=== PATIENT | male | born 1995 | race African-American/Black ===

== ENCOUNTER 2017-07-20 22:11 | Emergency (ER) | payer SELFPAY ==
[2017-07-20] MEDS ORDERED: IBUPROFEN 800 MG TABLET PO ONE (23:13)
--- NOTE | 2017-07-20 23:16 | ER Document Report ---
HPI - HPI Pain Level: 3 Context: Patient is a 22-year-old male presents emergency room with a chief complaint of shortness of breath and chest pain since Wednesday. Patient states that he noticed it worse with deep breaths but denies any wheezing, cough. Denies any sinus congestion, runny nose, fevers, chills, dyspnea. Patient denies any recent travel, hormone use, recent surgeries, extremity swelling denies any previous history of blood clots.Admits childhood history of asthma states he has not ever had to take Breathing treatments as an adult - CONSTITUTIONAL Constitutional: DENIES: Fever, Chills - EENT EENT: DENIES: Sore Throat, Ear Pain, Eye problems - NEURO Neurology: DENIES: Headache, Weakness, Vision blurred, Dizzinesss / Vertigo - CARDIOVASCULAR Cardiovascular: REPORTS: Chest pain - RESPIRATORY Respiratory: REPORTS: Coughing. DENIES: Trouble Breathing - GASTROINTESTINAL Gastrointestinal: DENIES: Abdominal Pain, Black / Bloody Stools - URINARY Urinary: DENIES: Dysuria, Urgency, Frequency - MUSCULOSKELETAL Musculoskeletal: DENIES: Extremity pain Past Medical History - Social History Smoking Status: Unknown if Ever Smoked Family History: Reviewed & Not Pertinent Patient has suicidal ideation: No Patient has homicidal ideation: No Renal/ Medical History: Denies: Hx Peritoneal Dialysis Vertical Provider Document - CONSTITUTIONAL Agree With Documented VS: Yes Notes: PHYSICAL EXAM GENERAL: Alert, interacts well. HEAD: Normocephalic, atraumatic. EYES: Pupils equal, round, and reactive to light. Extraocular movements intact. ENT: Oral mucosa moist, tongue midline. NECK: Full range of motion. Supple. Trachea midline. LUNGS: Clear to auscultation bilaterally, no wheezes, rales, or rhonchi. No respiratory distress. HEART: Regular rate and rhythm. No murmurs, gallops, or rubs. ABDOMEN: Soft, nondistended, nontender. No guarding, rebound, or rigidity.. Bowel sounds present in all 4 quadrants. EXTREMITIES: Moves all 4 extremities spontaneously. No edema, radial and dorsalis pedis pulses 2/4 bilaterally. No cyanosis. NEUROLOGICAL: Alert and oriented x4. Normal speech. PSYCH: Normal affect, normal mood. SKIN: Warm, dry, normal turgor. No rashes or lesions noted. - INFECTION CONTROL TRAVEL OUTSIDE OF THE [place] IN LAST 30 DAYS: No Course - Re-evaluation Re-evalutation: 07/21/17 00:29 Patient is a 22-year-old male with significant symptom improvement after Motrin. Patient is very well in appearance, vitals within normal limits. Low clinical suspicion for ACS given clinical history, exam, EKG without ST elevations or depressions, and negative initial troponin. HEART score less than or equal to 3. PE also seems unlikely given clinical history, absence of tachycardia or dyspnea. Well's score of 0. CXR without evidence of pneumothorax or pneumonia. No widened mediastinum. Aortic dissection also seems unlikely given history, symmetric pulses, CXR, and vitals. At this time will discharge with return precautions and follow-up recommendations. Verbal discharge instructions given a the bedside and opportunity for questions given. Medication warnings reviewed. Patient is in agreement with this plan and has verbalized understanding of return precautions and the need for primary care follow-up in the next 24-72 hours. - Laboratory Result Diagrams: 07/20/17 23:45 07/20/17 23:45 - Diagnostic Test Radiology reviewed: Image reviewed, Reports reviewed - EKG Interpretation by Me EKG shows normal: Sinus rhythm Rate: Normal Rhythm: NSR When compared to previous EKG there are: Other - Patient does have nonspecific T -wave changes which are not consistent with ischemia Discharge - Discharge Clinical Impression: Chest pain Condition: Good Disposition: HOME, SELF-CARE Instructions: Use of Alen-Vhs-Vmhhvvk Ibuprofen ([facility]) Additional Instructions: CHEST PAIN OF UNCLEAR CAUSE: The exact cause of your chest pain isn't clear. Fortunately, there is no evidence of a dangerous medical condition. Further testing may be required to find the source of the pain. Most often, we find that this pain is coming from the chest wall -- the muscles or rib joints in the chest. But chest pain can come from the lung and lung lining, the esophagus, the heart valves or heart lining, and even the stomach or gallbladder. Rest. Eat lightly until the pain is gone. We may prescribe medicine for pain and inflammation. You should call the physician immediately if the pain radiates to the shoulder, jaw or arms; if you start to run a fever or develop a cough; or if you develop shortness of breath, or other new or alarming symptoms. NORMAL EXAM AND WORKUP: At this time, your examination and workup show no significant abnormality. No significant abnormal physical findings were noted. All laboratory, EKG, and imaging (x-ray, CT scans, ultrasound) studies that were ordered show no significant abnormality. Although your examination and all studies that were ordered showed no significant abnormal finding, there are no examinations and no studies that are 100% accurate. There is always the possibility that some abnormality could exist and not be detected with physical examination or within the limits and capabilities of laboratory and other studies. You should return or follow up as you were instructed on your visit today for further evaluation if your symptoms do not resolve. CHEST WALL PAIN: Your chest pain may be coming from the chest wall. This is often caused by straining the muscles or joints in the chest during physical activity, direct trauma, coughing, or vigorous vomiting. Persons with arthritis are especially prone to this type of pain, due to inflammation of the cartilage joints near the breast bone. Occasionally, no cause can be found. Rest from strenuous physical activity. This kind of chest pain is usually made worse by movement of the chest. Depending on the symptoms, we may prescribe medicine for pain, muscle relaxation, and antiinflammatory effects. If the pain is new, and seems to be due to muscle strain, cold packs can help. Otherwise, apply gentle warmth to the painful area for 15 minutes every hour or two. You should call contact the doctor immediately if things change. Further evaluation is needed if you develop a fever or cough, if the nature of the pain changes, or if you become short of breath. FOLLOW-UP CARE: If you have been referred to a physician for follow-up care, call the physician s office for an appointment as you were instructed or within the next two days. If you experience worsening or a significant change in your symptoms, notify the physician immediately or return to the Emergency Department at any time for re-evaluation.
[2017-07-20 23:56] LABS: ABSOLUTE BASOPHILS # (AUTO) 0.1 10^3/uL (0.0-0.2); ABSOLUTE EOSINOPHILS # (AUTO) 0.2 10^3/uL (0.0-0.6); ABSOLUTE LYMPHOCYTES (AUTO) 2.2 10^3/uL (0.5-4.7); ABSOLUTE MONOCYTES (AUTO) 0.7 10^3/uL (0.1-1.4); ABSOLUTE NEUT (AUTO) 3.8 10^3/uL (1.7-8.2); BASOPHILS % (AUTO) 1.2 % (0-2); EOSINOPHILS % (AUTO) 2.9 % (0-6); HEMATOCRIT 41.4 % (37.9-51.0); HEMOGLOBIN 14.2 g/dL (13.5-17.0); LYMPHOCYTES % (AUTO) 31.5 % (13-45); MEAN CORPUSCULAR HEMOGLOBIN 29.5 pg (27.0-33.4); MEAN CORPUSCULAR HGB CONC 34.2 g/dL (32.0-36.0); MEAN CORPUSCULAR VOLUME 86 fl (80-97); MONOCYTES % (AUTO) 10.3 % (3-13); PLATELET COUNT 251 10^3/uL (150-450); RED CELL DISTRIBUTION WIDTH 13.2 % (11.5-14.0); SEGMENTED NEUTROPHILS % (AUTO) 54.1 % (42-78); TOTAL CELLS COUNTED % (AUTO) 100 %; WHITE BLOOD COUNT 7.1 10^3/uL (4.0-10.5)
[2017-07-21 00:13] LABS: ANION GAP 13 (5-19); BLOOD UREA NITROGEN 17 mg/dL (7-20); CALCIUM 9.6 mg/dL (8.4-10.2); CARBON DIOXIDE 29 mmol/L (22-30); CHLORIDE 100 mmol/L (98-107); GLUCOSE 80 mg/dL (75-110); POTASSIUM 3.7 mmol/L (3.6-5.0); SODIUM 142.2 mmol/L (137-145)
--- NOTE | 2017-07-21 00:29 | RADIOLOGY REPORT (SQ) ---
CXR Clinical history: 22-year-old male with chest pain. Comparison: None. Technique: 2 view chest submitted for review. Findings: Lungs are hyper expanded. Bronchopulmonary markings are prominent. No pneumothorax. No effusion. The cardiothymic shadow measures within normal. Pulmonary vascularity is unremarkable. Osseous structures are within normal limits for age. Impression: 1. Prominence of bronchopulmonary markings worrisome for viral airway disease. 2. No focal infiltrate.
[2017-07-21 01:23] VITALS: BP 113/56
--- NOTE | 2017-07-21 08:16 | EKG REPORT ---
SEVERITY:- ABNORMAL ECG - SINUS RHYTHM PROBABLE LEFT VENTRICULAR HYPERTROPHY BORDERLINE T ABNORMALITIES, INFERIOR LEADS : Confirmed by: Ashli Hernandez MD 21-Jul-2017 08:14:41
--- NOTE | 2017-07-21 22:40 | EKG REPORT ---
SEVERITY:- ABNORMAL ECG - SINUS RHYTHM PROBABLE LEFT VENTRICULAR HYPERTROPHY BORDERLINE T ABNORMALITIES, INFERIOR LEADS ANTERIOR ST ELEVATION, PROBABLY DUE TO LVH : Confirmed by: Ashli Hernandez MD 21-Jul-2017 22:39:26
== END 2017-07-21 01:23 | disposition home or self-care (01) ==
LOC: ER 22:11
DX: R07.9 Chest pain, unspecified (principal); R06.02 Shortness of breath; R05 Cough
CPT/HCPCS: 36415; 71046; 80048; 85025; 85379; 93005; 93010; 99284

== ENCOUNTER 2018-07-11 23:44 | Emergency (ER) | payer BC ==
[2018-07-12] MEDS ORDERED: CETIRIZINE 10 MG TABLET PO ONE (01:46)
[2018-07-12] MEDS ORDERED: DEXAMETHASONE 4 MG TABLET PO ONE (01:46)
--- NOTE | 2018-07-12 01:48 | ER Document Report ---
ED General - General Chief Complaint: Allergic Reaction Stated Complaint: POSSIBLE ALLERGIC REACTION Time Seen by Provider: 07/12/18 01:08 Notes: Patient is a 23-year-old male without chronic medical problems who presents with swelling and itching to his bilateral hands, around his ears and on several scattered areas on his chest and abdomen. Patient states that this started after he ate crabs. States that he is eating crabs and other seafood in the past without any difficulty. States that his symptoms started gradually shortly after eating the cramps and is gotten progressively worse since that time. Describes as a severe, diffuse pleuritic discomfort. Nothing has been tried to improve the symptoms. No history of similar symptoms in the past. Denies any nausea, vomiting, diarrhea, lightheadedness, syncope, sensation of throat swelling, difficulty breathing or swallowing. Has not seen his primary care doctor regarding today's concerns. TRAVEL OUTSIDE OF THE [place] IN LAST 30 DAYS: No - Related Data Allergies/Adverse Reactions: No Known Allergies Allergy (Unverified 07/20/17 22:16) Past Medical History - General Information source: Patient - Social History Smoking Status: Never Smoker Frequency of alcohol use: None Drug Abuse: None Lives with: Spouse/Significant other Family History: Reviewed & Not Pertinent Renal/ Medical History: Denies: Hx Peritoneal Dialysis Review of Systems - Review of Systems Notes: Constitutional: Negative for fever. HENT: Negative for sore throat. Eyes: Negative for visual changes. Cardiovascular: Negative for chest pain. Respiratory: Negative for shortness of breath. Gastrointestinal: Negative for abdominal pain, vomiting or diarrhea. Genitourinary: Negative for dysuria. Musculoskeletal: Negative for back pain. Skin: Positive for rash. Neurological: Negative for headaches, weakness or numbness. 10 point ROS negative except as marked above and in HPI. Physical Exam - Vital signs Vitals: Temp Pulse Resp BP Pulse Ox 97.7 F 62 18 121/58 L 100 07/11/18 23:54 07/11/18 23:54 07/11/18 23:54 07/11/18 23:54 07/11/18 23:54 Interpretation: Normal Notes: PHYSICAL EXAMINATION: GENERAL: Well-appearing, well-nourished and in no acute distress. HEAD: Atraumatic, normocephalic. EYES: Pupils equal round and reactive to light, extraocular movements intact, sclera anicteric, conjunctiva are normal. ENT: nares patent, oropharynx clear without exudates. Moist mucous membranes. NECK: Normal range of motion, supple without lymphadenopathy LUNGS: Breath sounds clear to auscultation bilaterally and equal. No wheezes rales or rhonchi. HEART: Regular rate and rhythm without murmurs ABDOMEN: Soft, nontender, normoactive bowel sounds. No guarding, no rebound. No masses appreciated. EXTREMITIES: Normal range of motion, no pitting or edema. No cyanosis. NEUROLOGICAL: No focal neurological deficits. Moves all extremities spontaneously and on command. PSYCH: Normal mood, normal affect. SKIN: Warm, Dry, normal turgor, scattered areas of urticaria over the bilateral hands and posterior neck as well as over the lower abdomen Course - Re-evaluation Re-evalutation: 07/12/18 01:47 Patient presents with symptoms consistent with an allergic reaction without anaphylaxis. Only cutaneous involvement with multiple areas of hives. Vitals otherwise within normal limits at time of arrival. No respiratory, GI, cardiovascular, or oral pharyngeal symptoms. A dose of dexamethasone and cetirizinehave been given here in the emerge will recommend ongoing antihistamine therapy as an outpatient. At this time will discharge with return precautions and follow-up recommendations. Verbal discharge instructions given a the bedside and opportunity for questions given. Medication warnings reviewed. Patient is in agreement with this plan and has verbalized understanding of return precautions and the need for primary care follow-up in the next 24-72 hours. - Vital Signs Vital signs: Temp Pulse Resp BP Pulse Ox 97.5 F 69 16 136/98 H 99 07/12/18 02:22 07/12/18 02:22 07/12/18 02:22 07/12/18 02:22 07/12/18 02:22 Discharge - Discharge Clinical Impression: Urticaria Acute allergic reaction Qualifiers: Encounter type: initial encounter Qualified Code(s): T78.40XA - Allergy, unspecified, initial encounter Condition: Good Disposition: HOME, SELF-CARE Additional Instructions: You were seen today for hives. This can be either allergic, autoimmune, or environmental in origin. You can continue to take cetirizine 10mg up to 3 times daily as needed for itching. IF YOU DEVELOP DIFFICULTY BREATHING, SPREADING OF H SHANA, VOMITING, LIGHTHEADEDNESS, IMMEDIATELY AND CALL 911. Please follow-up with your primary care physician in the next 1-2 days.
[2018-07-12 02:43] VITALS: BP 136/98
== END 2018-07-12 02:25 | disposition home or self-care (01) ==
LOC: ER 23:44
DX: L50.0 Allergic urticaria (principal)
CPT/HCPCS: 99283

== ENCOUNTER 2019-01-09 16:07 | Emergency (ER) | payer BC ==
[2019-01-09] MEDS ORDERED: DICYCLOMINE HCL 20 MG TABLET PO ONE ×2 (16:45→20:00)
[2019-01-09] MEDS ORDERED: ONDANSETRON HCL INJ/PF 4 MG/2 ML SDV IV ONE ×2 (16:45→20:00)
--- NOTE | 2019-01-09 16:46 | ER Document Report ---
ED Medical Screen (RME) - General Chief Complaint: Abdominal Pain Stated Complaint: VOMITING, FEVER Time Seen by Provider: 01/09/19 16:42 Mode of Arrival: Ambulatory Information source: Patient Notes: Patient presents complaining of generalized abdominal pain with nausea vomiting diarrhea that started this morning. Patient denies any urinary symptoms. Patient denies any fever. Patient states that pain is improved when he is bending over at the waist. I have greeted and performed a rapid initial assessment of this patient. A comprehensive ED assessment and evaluation of the patient, analysis of test results and completion of the medical decision making process will be conducted by additional ED providers. TRAVEL OUTSIDE OF THE [place] IN LAST 30 DAYS: No - Related Data Allergies/Adverse Reactions: pollen extracts Allergy (Verified 01/09/19 16:30) Past Medical History - Social History Frequency of alcohol use: None Drug Abuse: None Renal/ Medical History: Denies: Hx Peritoneal Dialysis Physical Exam - Vital signs Vitals: Temp Pulse Resp BP Pulse Ox 98.5 F 71 20 121/70 97 01/09/19 16:16 01/09/19 16:16 01/09/19 16:16 01/09/19 16:16 01/09/19 16:16 - Abdominal Tenderness: Tender - Generalized abdominal tenderness, Guarding Course - Vital Signs Vital signs: Temp Pulse Resp BP Pulse Ox 98.5 F 71 20 121/70 97 01/09/19 16:16 01/09/19 16:16 01/09/19 16:16 01/09/19 16:16 01/09/19 16:16
[2019-01-09 17:35] LABS: APPEARANCE,URINE CLEAR; BILIRUBIN,URINE NEGATIVE (NEGATIVE); COLOR,URINE YELLOW; GLUCOSE, URINE NEGATIVE (NEGATIVE); KETONES,URINE NEGATIVE (NEGATIVE); LEUKOCYTE ESTERASE,URINE NEGATIVE (NEGATIVE); NITRITE,URINE NEGATIVE (NEGATIVE); PROTEIN,URINE 100 mg/dL (NEGATIVE); URINE SPECIFIC GRAVITY 1.026; UROBILINOGEN,URINE NEGATIVE mg/dL (<2.0)
[2019-01-09 17:41] LABS: HEMATOCRIT 44.5 % (37.9-51.0); MEAN CORPUSCULAR HEMOGLOBIN 29.8 pg (27.0-33.4); MEAN CORPUSCULAR HGB CONC 33.8 g/dL (32.0-36.0); MEAN CORPUSCULAR VOLUME 88 fl (80-97); PLATELET COUNT 260 10^3/uL (150-450); RED BLOOD COUNT 5.06 10^6/uL (4.35-5.55); WHITE BLOOD COUNT 11.1 10^3/uL (4.0-10.5)
[2019-01-09 17:50] LABS: ALBUMIN 5.1 g/dL (3.5-5.0); ALKALINE PHOSPHATASE 70 U/L (38-126); ANION GAP 13 (5-19); ASPARTATE AMINO TRANSFERASE 39 U/L (17-59); BILIRUBIN,TOTAL 1.1 mg/dL (0.2-1.3); BLOOD UREA NITROGEN 14 mg/dL (7-20); CALCIUM 9.7 mg/dL (8.4-10.2); CARBON DIOXIDE 30 mmol/L (22-30); CHLORIDE 98 mmol/L (98-107); GLUCOSE 110 mg/dL (75-110); POTASSIUM 4.1 mmol/L (3.6-5.0); TOTAL PROTEIN 8.7 g/dL (6.3-8.2)
[2019-01-09 18:03] LABS: ABSOLUTE LYMPHOCYTES# (MANUAL) 0.2 10^3/uL (0.5-4.7); ABSOLUTE MONOCYTES # (MANUAL) 0.2 10^3/uL (0.1-1.4); BAND NEUTROPHILS % (MANUAL) 7 % (3-5); BASOPHILS % (MANUAL) 0 % (0-2); EOSINOPHILS % (MANUAL) 0 % (0-6); LYMPHOCYTES % (MANUAL) 2 % (13-45); MONOCYTES % (MANUAL) 2 % (3-13); PLATELET COMMENT ADEQUATE; SEGMENTED NEUTROPHILS % (MAN) 89 % (42-78); TOTAL CELLS COUNTED 100
--- NOTE | 2019-01-09 19:14 | ER Document Report ---
ED General - General Chief Complaint: Abdominal Pain Stated Complaint: VOMITING, FEVER Time Seen by Provider: 01/09/19 16:42 Mode of Arrival: Ambulatory Notes: 23-year-old male presents emergency department with complaints of nausea vomiting diarrhea since this morning. He reports he went to [place] back this weekend. Was not exposed to anybody sick that he knows of. No family members ill. Works at [employer] unsure if he was exposed to anybody they are sick. Denies fever but he reports he did feel hot. Denies sore throat cough. Patient reports he ate some [place]ian food last night. He reports he is not used to [place] food because he is [place]. He is wondering if [place]ian food is what caused the symptoms. TRAVEL OUTSIDE OF THE [place] IN LAST 30 DAYS: No - HPI Onset: This morning Onset/Duration: Sudden Quality of pain: Achy Associated symptoms: Diarrhea, Nausea, Vomiting Exacerbated by: Denies Relieved by: Denies Similar symptoms previously: No Recently seen / treated by doctor: No - Related Data Allergies/Adverse Reactions: pollen extracts Allergy (Verified 01/09/19 16:30) Past Medical History - General Information source: Patient - Social History Smoking Status: Never Smoker Frequency of alcohol use: None Drug Abuse: None Occupation: [employer] Lives with: Family Family History: Reviewed & Not Pertinent Patient has suicidal ideation: No Patient has homicidal ideation: No - Medical History Medical History: Negative Renal/ Medical History: Denies: Hx Peritoneal Dialysis Surgical Hx: Negative Review of Systems - Review of Systems Notes: Review HPI for review of systems., All other systems negative Physical Exam - Vital signs Vitals: Temp Pulse Resp BP Pulse Ox 98.5 F 71 20 121/70 97 01/09/19 16:16 01/09/19 16:16 01/09/19 16:16 01/09/19 16:16 01/09/19 16:16 - Notes Notes: PHYSICAL EXAMINATION: GENERAL: Well-appearing and in no acute distress HEAD: Atraumatic, normocephalic. EYES: extraocular movements intact, sclera anicteric, conjunctiva are normal. ENT: nares patent, oropharynx clear without exudates. Moist mucous membranes. NECK: Normal range of motion, supple without lymphadenopathy LUNGS: CTAB and equal. No wheezes rales or rhonchi. HEART: Regular rate and rhythm without murmurs ABDOMEN: Soft, epigastric tenderness. No guarding, no rebound EXTREMITIES: Normal range of motion, no pitting edema. No cyanosis. NEUROLOGICAL: Cranial nerves grossly intact. Normal sensory/motor exams. PSYCH: Normal mood, normal affect. SKIN: Warm, Dry, normal turgor, no rashes or lesions noted Course - Re-evaluation Re-evalutation: 01/09/19 19:10 23-year-old male presents with complaints of nausea vomiting diarrhea that started this morning. Denies cough fever although he reports he felt warm. Denies pain with void. No other family members ill. Denies sore throat. Patient mentions that he ate [place]ian food last night. He reports he is not used to this type of food because he is [place]. He is wondering if that is what caused the symptoms. He denies recent antibiotics. He denies recent overseas trip. Nurses were unable to get an IV. Patient is now drinking p.o. fluids will attempt to give him crackers. He has had no further vomiting since 1600 today. Last diarrhea was a couple hours ago. Mild leukocytosis with some bands. UA is negative no ketones chemistry is unremarkable. 01/09/19 16:55 01/09/19 16:55 MCV 88 fl (80-97) 01/09/19 16:55 MCH 29.8 pg (27.0-33.4) 01/09/19 16:55 MCHC 33.8 g/dL (32.0-36.0) 01/09/19 16:55 RDW 13.0 % (11.5-14.0) 01/09/19 16:55 Seg Neutrophils % Not Reportable 01/09/19 16:55 Chloride 98 mmol/L (98-107) 01/09/19 16:55 Carbon Dioxide 30 mmol/L (22-30) 01/09/19 16:55 Anion Gap 13 (5-19) 01/09/19 16:55 Est GFR ( Amer) > 60 (>60) 01/09/19 16:55 Glucose 110 mg/dL (75-110) 01/09/19 16:55 Calcium 9.7 mg/dL (8.4-10.2) 01/09/19 16:55 Total Bilirubin 1.1 mg/dL (0.2-1.3) 01/09/19 16:55 AST 39 U/L (17-59) 01/09/19 16:55 Alkaline Phosphatase 70 U/L (38-126) 01/09/19 16:55 Total Protein 8.7 g/dL (6.3-8.2) H 01/09/19 16:55 Albumin 5.1 g/dL (3.5-5.0) H 01/09/19 16:55 Lipase 118.1 U/L (23-300) 01/09/19 16:55 Urine Color YELLOW 01/09/19 16:55 Urine Appearance CLEAR 01/09/19 16:55 Urine pH 9.0 (5.0-9.0) 01/09/19 16:55 Ur Specific [place] 1.026 01/09/19 16:55 Urine Protein 100 mg/dL (NEGATIVE) H 01/09/19 16:55 Urine Glucose (UA) NEGATIVE mg/dL (NEGATIVE) 01/09/19 16:55 Urine Ketones NEGATIVE mg/dL (NEGATIVE) 01/09/19 16:55 Urine Blood NEGATIVE (NEGATIVE) 01/09/19 16:55 Urine Nitrite NEGATIVE (NEGATIVE) 01/09/19 16:55 Ur Leukocyte Esterase NEGATIVE (NEGATIVE) 01/09/19 16:55 Urine WBC (Auto) 6 /HPF 01/09/19 16:55 Urine RBC (Auto) 2 /HPF 01/09/19 16:55 01/09/19 20:42 Patient is drinking p.o. fluids eating crackers ready to go home. He was prescribed Zofran dispense pack. Instructed on the importance of push fluids clear liquids advance as tolerated. He verbalized understanding to all instructions. Dictation of this chart was performed using voice recognition software; therefore, there may be some unintended grammatical errors. - Vital Signs Vital signs: Temp Pulse Resp BP Pulse Ox 98.3 F 56 L 20 120/51 L 100 01/09/19 21:13 01/09/19 21:13 01/09/19 16:16 01/09/19 21:13 01/09/19 21:13 - Laboratory Result Diagrams: 01/09/19 16:55 01/09/19 16:55 Laboratory results interpreted by me: 01/09/19 01/09/19 01/09/19 16:55 16:55 16:55 WBC 11.1 H Seg Neuts % (Manual) 89 H Band Neutrophils % 7 H Lymphocytes % (Manual) 2 L Monocytes % (Manual) 2 L Abs Neuts (Manual) 10.7 H Abs Lymphs (Manual) 0.2 L Total Protein 8.7 H Albumin 5.1 H Urine Protein 100 H Discharge - Discharge Clinical Impression: Nausea vomiting and diarrhea, Abdominal pain Condition: Stable Disposition: HOME, SELF-CARE Instructions: Abdominal Pain ([facility]), Antinausea Medication ([facility]), Diarrhea, Nonspecific ([facility]), Vomiting ([facility]) Additional Instructions: *You have been evaluated for nausea/vomiting/diarrhea *Take medication as prescribed Clear liquids advance as tolerated *Over the counter anti-diarrheal as indicated *Ensure adequate fluid intake as discussed to prevent dehydration *Follow up with a primary care provider within a week for recheck Good handwashing *Return to ED for worsening condition, changes, needs Forms: Return to Work
[2019-01-09] MEDS: NORMAL SALINE 1000 ML 1,000 ML IV ONE ×2 (19:34→21:25)
[2019-01-09] MEDS ORDERED: ONDANSETRON 4 MG TAB.RAPDIS ONE (20:01)
[2019-01-09] MEDS ORDERED: ONDANSETRON 4 MG TAB.RAPDIS PO ONE (20:08)
[2019-01-09] MEDS ORDERED: ONDANSETRON ODT 4 MG TAB (6 TAB/ER DISP) PO PRN (20:42)
[2019-01-09 21:19] VITALS: BP 120/51
== END 2019-01-09 21:19 | disposition home or self-care (01) ==
LOC: ER 16:07
DX: R11.2 Nausea with vomiting, unspecified (principal); R19.7 Diarrhea, unspecified; R10.9 Unspecified abdominal pain; Z91.048 Other nonmedicinal substance allergy status
CPT/HCPCS: 99284; 96374; 36415; 83690; 85025; 80053; 81001; J3490; S0119; J2405; J7030